=== PATIENT | female | born 1945 | race Caucasian/White ===

== ENCOUNTER 2022-11-22 11:12 | Emergency (ER) | payer MEDICARE ==
[~2022-11-22] VITALS: Ht 162.6 cm; Wt 70.3 kg
[2022-11-22 11:38] LABS: BASOPHILS ABSOLUTE AUTO 0.04 K/mm3 (0.00-0.23); BASOPHILS PERCENT AUTO 0 % (0-2); EOSINOPHILS ABSOLUTE AUTO 0.07 K/mm3 (0.00-0.68); EOSINOPHILS PERCENT AUTO 0 % (0-6); Hematocrit 29.9 % (33.0-51.0); Hemoglobin 9.3 g/dL (11.5-16.0); IMMATURE GRAN ABSOLUTE AUTO 0.15 K/mm3 (0.00-0.10); IMMATURE GRAN PERCENT AUTO 1 % (0-1); LYMPHOCYTES ABSOLUTE AUTO 2.64 K/mm3 (0.84-5.20); LYMPHOCYTES PERCENT AUTO 16 % (21-46); MONOCYTES PERCENT AUTO 7 % (4-13); Mean Corpuscular HGB 21.9 pg (26.0-34.0); Mean Corpuscular HGB Conc 31.1 g/dL (31.5-36.5); Mean Corpuscular Volume 71 fL (80-100); Mean Platelet Volume 9.5 fL (9.1-12.4); NEUTROPHILS PERCENT AUTO 76 % (41-73); Platelet Count 879 K/mm3 (150-400); RDW Coefficient Variation 21.5 % (11.7-14.2); RDW Standard Deviation 51.3 fL (35.1-46.3); Red Blood Cell Count 4.24 M/mm3 (3.80-5.20)
[2022-11-22 11:56] LABS: Albumin, Blood 2.1 g/dL (3.4-5.0); Albumin/Globulin Ratio 0.4 (0.8-1.8); Bilirubin, Total 0.6 mg/dL (0.1-1.0); Bun/Creatinine Ratio 18.2 (12.0-20.0); Calcium, Blood 8.9 mg/dL (8.5-10.1); Creatinine, Blood 0.94 mg/dL (0.40-1.00); Globulin, Blood 5.4 g/dL (2.2-4.0); Potassium, Blood 4.2 mmol/L (3.5-5.5); Total Protein, Blood 7.5 g/dL (6.4-8.2)
[2022-11-22] MEDS ORDERED: DOC250 PO (13:18)
[2022-11-22] MEDS ORDERED: Percocet 5-3251 EACH PO (13:18)
[2022-11-22 13:44] VITALS: BP 137/89
== END 2022-11-22 13:45 | disposition home or self-care (01) ==
LOC: ER 11:12
PROVIDERS: Emergency Medicine
DX: R10.13 Epigastric pain (principal); D64.9 Anemia, unspecified; C80.1 Malignant (primary) neoplasm, unspecified; C78.7 Secondary malignant neoplasm of liver and intrahepatic bile duct
CPT/HCPCS: 74177; 80053; 83690; 85025; 86850; 86900; 86901; 93005; 93010; 96365-59; 96366; 96376; 99284-25; C9113; J7030; Q9967

== ENCOUNTER 2022-12-16 09:56 | Inpatient (IN) | payer MEDICARE ==
[~2022-12-16] VITALS: Ht 160 cm; Wt 72.9 kg
[~2022-12-16 09:56] MED LIST: DOC250 PO; Percocet 5-3251 EACH PO
[2022-12-16 11:40] LABS: BASOPHILS ABSOLUTE AUTO 0.05 K/mm3 (0.00-0.23); BASOPHILS PERCENT AUTO 0 % (0-2); EOSINOPHILS PERCENT AUTO 0 % (0-6); Hematocrit 30.8 % (33.0-51.0); Hemoglobin 9.3 g/dL (11.5-16.0); IMMATURE GRAN ABSOLUTE AUTO 0.67 K/mm3 (0.00-0.10); IMMATURE GRAN PERCENT AUTO 3 % (0-1); LYMPHOCYTES ABSOLUTE AUTO 2.61 K/mm3 (0.84-5.20); LYMPHOCYTES PERCENT AUTO 10 % (21-46); MONOCYTES ABSOLUTE AUTO 1.19 K/mm3 (0.16-1.47); MONOCYTES PERCENT AUTO 5 % (4-13); Mean Corpuscular HGB 23.1 pg (26.0-34.0); Mean Corpuscular HGB Conc 30.2 g/dL (31.5-36.5); Mean Corpuscular Volume 76 fL (80-100); Mean Platelet Volume 9.8 fL (9.1-12.4); NEUTROPHILS ABSOLUTE AUTO 21.97 K/mm3 (1.96-9.15); NEUTROPHILS PERCENT AUTO 83 % (41-73); NRBC ABSOLUTE 0.11 K/mm3 (0.00-0.02); NRBC Auto 0.4 /100 WBC (0.0-0.2); Platelet Count 782 K/mm3 (150-400); RDW Coefficient Variation 27.7 % (11.7-14.2); RDW Standard Deviation 72.7 fL (35.1-46.3); Red Blood Cell Count 4.03 M/mm3 (3.80-5.20); White Blood Cell Count 26.49 K/mm3 (4.00-11.30)
[2022-12-16 11:48] LABS: Magnesium, Blood 3.1 mg/dL (1.6-2.4)
[2022-12-16 11:54] LABS: Albumin, Blood 1.6 g/dL (3.4-5.0); Albumin/Globulin Ratio 0.3 (0.8-1.8); Bilirubin, Total 1.2 mg/dL (0.1-1.0); Bun/Creatinine Ratio 25.2 (12.0-20.0); Calcium, Blood 7.8 mg/dL (8.5-10.1); Creatinine, Blood 2.3 mg/dL (0.40-1.00); Globulin, Blood 5.1 g/dL (2.2-4.0); Total Protein, Blood 6.7 g/dL (6.4-8.2)
[2022-12-16 12:03] LABS: International Normalized Ratio 1.75; Prothrombin Time Results 17.8 Sec (9.7-11.5)
[2022-12-16 17:13] VITALS: BP 132/60
[2022-12-16 17:59] LABS: Bun/Creatinine Ratio 24.4 (12.0-20.0); Calcium, Blood 7.7 mg/dL (8.5-10.1); Creatinine, Blood 2.21 mg/dL (0.40-1.00); Potassium, Blood 5.5 mmol/L (3.5-5.5)
[2022-12-16 18:19] LABS: Percent Saturation 17.2 % (15.0-50.0)
--- NOTE | 2022-12-16 18:28 | NUR ---
pt having writhing pain and pressure , sever fatigue has not eaten any food. lives alone states no family. We found a niece and called. She is comfing from [place]. pt has extensive meetastatic disease. extensive family history of cancer. pt not sure she wants treatment. We discussed both options. historically she has not had much medical care. updated her niece on prognosis. Will monitor pain closely. kps score 30% hospice sooner that later.
[2022-12-16 19:56] VITALS: BP 146/50
[2022-12-17 03:49] VITALS: BP 147/56
[2022-12-17 04:14] LABS: Source, Urine Clean Catch
[2022-12-17 05:29] LABS: Appearance, Urine Hazy (Clear); Blood, Urine 3+ (Neg); Glucose Qualitative, Urine Neg (Neg); Ketones, Urine 1+ (Neg); Leukocyte Esterase, Urine 1+ (Neg); Nitrite, Urine Neg (Neg); Protein, Urine 2+ (Neg); Urobilinogen, Urine NORM (Normal)
[2022-12-17 05:35] LABS: Bilirubin, Urine 1+ (Neg)
[2022-12-17 05:36] LABS: Color, Urine Yellow (P-Yellow)
[2022-12-17 05:37] LABS: Bacteria Many /hpf; Squamous Epithelial Cells Mod /hpf (Few); White Blood Cells, Urine 0-2 /hpf (0-5)
--- NOTE | 2022-12-17 06:05 | NUR ---
SHIFT SUMMARY PT LAYING IN BED WITH EYES CLOSED, NO S/S DISTRESS/PAIN,REPORT THAT PT TOLERATED ROXANOL 10MG AND ADDITIONAL CAN BE GIVEN IF NEEDED- PT MOANS WHEN SHE WAKES- IV INFUSING WITHOUT PROBLEMS, PT REFUSED STOOL SOFTNERS AND PROBIOTIC AT [facility], PT STATED TO THIS RN THAT SHE DOESN'T USUALLY GO TO DOCTORS OR GET MEDICAL ATTENTION, PT MOANING T/O NIGHT BUT DENIES PAIN, ENCOURAGED PT TO TRY TO URINATE SINCE NO VOID SINCE ED AND ADMISSION- PT REFUSED BLADDER SCAN D/T DISCOMFORT OF ABDOMEN- WILL CONTINUE TO MONITOR 0350 VITALS DONE, ASSISTING PT TO GET TO [facility]-URINE SAMPLE COLLECTED- PT CONFUSED WHEN ASKED IF SHE IS PAINFUL PT REPEATILY SAYS THATS ITS JUST THE NOISE AND NOT PAIN- PT APPEARS TO BE PAINFUL, FLACC USED TO ASSESS PAIN PT DENIED HAVING ITEMS OF IGNITION
[2022-12-17 07:47] VITALS: BP 155/69
[2022-12-17 09:27] LABS: BASOPHILS ABSOLUTE AUTO 0.05 K/mm3 (0.00-0.23); BASOPHILS PERCENT AUTO 0 % (0-2); EOSINOPHILS ABSOLUTE AUTO 0.01 K/mm3 (0.00-0.68); EOSINOPHILS PERCENT AUTO 0 % (0-6); Hematocrit 26.8 % (33.0-51.0); IMMATURE GRAN ABSOLUTE AUTO 0.62 K/mm3 (0.00-0.10); IMMATURE GRAN PERCENT AUTO 3 % (0-1); LYMPHOCYTES ABSOLUTE AUTO 1.75 K/mm3 (0.84-5.20); LYMPHOCYTES PERCENT AUTO 8 % (21-46); MONOCYTES ABSOLUTE AUTO 0.75 K/mm3 (0.16-1.47); MONOCYTES PERCENT AUTO 3 % (4-13); Mean Corpuscular HGB 22.9 pg (26.0-34.0); Mean Corpuscular HGB Conc 29.9 g/dL (31.5-36.5); Mean Corpuscular Volume 77 fL (80-100); Mean Platelet Volume 9.4 fL (9.1-12.4); NEUTROPHILS ABSOLUTE AUTO 19.89 K/mm3 (1.96-9.15); NEUTROPHILS PERCENT AUTO 86 % (41-73); NRBC ABSOLUTE 0.09 K/mm3 (0.00-0.02); NRBC Auto 0.4 /100 WBC (0.0-0.2); Platelet Count 585 K/mm3 (150-400); RDW Coefficient Variation 26.9 % (11.7-14.2); RDW Standard Deviation 70.6 fL (35.1-46.3); White Blood Cell Count 23.07 K/mm3 (4.00-11.30)
[2022-12-17 09:49] LABS: Albumin, Blood 1.5 g/dL (3.4-5.0); Albumin/Globulin Ratio 0.3 (0.8-1.8); Bilirubin, Total 1.3 mg/dL (0.1-1.0); Bun/Creatinine Ratio 25.7 (12.0-20.0); Calcium, Blood 7.3 mg/dL (8.5-10.1); Creatinine, Blood 2.41 mg/dL (0.40-1.00); Globulin, Blood 4.4 g/dL (2.2-4.0); Potassium, Blood 5.1 mmol/L (3.5-5.5); Total Protein, Blood 5.9 g/dL (6.4-8.2)
--- NOTE | 2022-12-17 13:34 | NUR ---
Pt resting in bed with her eyes closed upon arrival. Pt wakes to gentle verbal stimuli but unable to have conversation speaking in non sensical sentences. Pt appears to be having pain as evidenced by moaning and constant movement in bed. Spoke with NENA Sorensen who is covering for Primary RN. Edu will offer pain medication. Spoke with Dr Chambers and discussed case. Pt was reporting yesterday of being in agreement with pursuing biopsy. Plan: Goals of care conversation when Pt's pain and mentation improves. Palliative Care will remain available
[2022-12-17 15:10] VITALS: BP 117/67
--- NOTE | 2022-12-17 18:15 | NUR ---
DAYSHIFT SUMMARY Patient oriented to self, this morning, she aroused to voice, but unable to appropriately answer questions. Attempted pain assessment, patient kept saying she was stiff, and groaning in pain. Denied pain. Offered pain medications, patient accepted when offered, but did not ask RN for meds. Patient medicated and was able to sleep comfortably in bed. Chest CT done today, imaging reported unable to do MRI until tuesday, hospitalist aware. IV fluids infusing continously, IV ABX given. very little urine output this shift. Vitals stable. Will continue plan of care.
[2022-12-17 19:33] VITALS: BP 92/54
[2022-12-17 20:33] VITALS: BP 109/46
--- NOTE | 2022-12-17 21:24 | NUR ---
PT LETHARGIC, RESPONDS TO DIRECTIONS/QUESTIONS WITH SOUNDS AND BRIEFLY OPENING EYES BUT HAS NOT FORMED WORDS THUS FAR, DOES NOT RESPOND APPROPRIATELY. BRADYPNEIC WITH ACCESSORY MUSCLE USE. SATTING WELL ON ROOM AIR, BP WNL THUS FAR, MILDLY TACHYCARDIC WITH NO ELEVATED TEMPERATURE. DISCUSSED WITH KAYLIN GARCIA RN WHO WAS WITH PT LAST NIGHT AND REPORTS THAT BEHAVIOR THUS FAR IS IN LINE WITH PT CONDITION LAST NIGHT WELL. PT APPEARS TO BE IN PAIN BUT UNABLE TO ARTICULATE THIS PAIN. DISCUSSION WITH [facility] [employer] KOLTON JUDD. DESIRE TO MEDICATE FOR PAIN BUT WAS TENTATIVE DUE TO POSSIBILITY OF EXACERBATING TACHYPNEA/LETHARGY. AFTER DISCUSSION WITH KOLTON, OKAY TO MEDICATE WITH FENTANYL 25 MCG AND RECHECK VITALS IN A HALF HOUR.
[2022-12-17 21:34] VITALS: BP 100/59
== END 2022-12-17 23:40 | DRG 436 ==
LOC: ER 09:56 → MEDS 13:36
PROVIDERS: Emergency Medicine; ADMIT Internal Medicine
DX: C78.7 Secondary malignant neoplasm of liver and intrahepatic bile duct (principal); C78.00 Secondary malignant neoplasm of unspecified lung; D68.9 Coagulation defect, unspecified; E87.1 Hypo-osmolality and hyponatremia; E87.20 Acidosis, unspecified; N17.9 Acute kidney failure, unspecified; R63.4 Abnormal weight loss; Z66 Do not resuscitate; Z51.5 Encounter for palliative care; E87.5 Hyperkalemia; R74.01 Elevation of levels of liver transaminase levels; D53.9 Nutritional anemia, unspecified; D75.839 Thrombocytosis, unspecified; E86.0 Dehydration; D63.0 Anemia in neoplastic disease; M89.9 Disorder of bone, unspecified; R59.1 Generalized enlarged lymph nodes; N83.8 Other noninflammatory disorders of ovary, fallopian tube and broad ligament; C80.1 Malignant (primary) neoplasm, unspecified; Z60.2 Problems related to living alone; Z79.899 Other long term (current) drug therapy; Z79.891 Long term (current) use of opiate analgesic; Z68.27 Body mass index [BMI] 27.0-27.9, adult
CPT/HCPCS: 36415; 71250; 74177; 80048; 80053; 81001; 82728; 83540; 83550; 83605; 83690; 83735; 84145; 85025; 85610; 86850; 86900; 86901; 87040; 87086; 93005; 93010; 96361; 96365-59; 96375-59; 99285-25; A9270; C9113; J0456; J0612; J1170; J1650; J2543; J3010; J7030; J7050; Q9967